=== PATIENT | male | born 1955 | race Caucasian/White ===

== ENCOUNTER 2024-06-05 11:39 | Inpatient (IN) ==
--- NOTE | 2024-06-05 11:49 | ED Physician Documentation ---
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 He said cough, cold, runny nose. He was seen by my partner on the , at which time he was found to have parainfluenza with generally unremarkable labs (low white count and mild anemia, very mild hyponatremia). His x-ray at that time was negative. He went to urgent care this morning with more generalized weakness, and was found to be hypoxic into the mid and low 80s and a fresh chest x-ray today demonstrates bilateral pneumonia. Meds/Allgy Home Medications Ambulatory Orders Medication Instructions Recorded Confirmed ondansetron 4 mg disintegrating 4 mg PO Q6HR PRN nausea and 06/02/24 tablet vomiting #20 tabs albuterol sulfate 90 mcg/actuation 2 puff inhalation Q6H PRN 06/05/24 06/05/24 aerosol inhaler (Ventolin HFA) amoxicillin 875 mg tablet 875 mg PO BID 10 days #20 tabs 06/05/24 06/05/24 azithromycin 250 mg tablet See Rx Instructions PO .COMPLEX #6 06/05/24 06/05/24 tabs benzonatate 200 mg capsule 200 mg PO BID PRN cough #14 caps 06/05/24 06/05/24 codeine 10 mg-guaifenesin 100 mg/5 5 ml PO Q6H PRN cough #120 mL 06/05/24 06/05/24 mL oral liquid melatonin 3 mg capsule 3 mg PO HS PRN 06/05/24 06/05/24 oxymetazoline 0.05 % nasal spray 2 spray intranasal Q12H PRN 06/05/24 06/05/24 (Afrin (oxymetazoline)) trazodone 100 mg tablet 100 mg PO QDAY 06/05/24 06/05/24 Allergies Allergies Allergy/AdvReac Type Severity Reaction Status Date / Time No Known Drug Allergies Allergy Verified 06/05/24 11:52 PFSH Active Problems All Active Problems Pneumonia (Acute) Respiratory failure (Acute) Acute respiratory failure with hypoxia (Acute) ARDS (adult respiratory distress syndrome) (Acute) Hypoxia (Acute) Pneumonia of both lower lobes (Acute) Cough (Acute) Nausea (Acute) Dehydration (Acute) Parainfluenza infection (Acute) Ingrown left big toenail (Acute) No pertinent past surgical history (Acute) Medical History Medical History Healthy adult on routine physical examination Family History Family History Other Healthy adult on routine physical examination Social History Social History Smoking Status: Never smoker Relationship: Do you feel safe in your home environment?: Yes Suffered physical, verbal, emotional, or financial abuse?: No POLST Patient has POLST: No Exam Exam Vital Signs: Vital Signs x48h Temp Pulse Resp BP Pulse Ox 06/05/24 11:49 36.9 C 69 24 118/66 88 L Constitutional He is tachypneic with labored breathing but speaking in full sentences. Chest Mildly labored breathing and crackles at both bases. Cardiovascular normal heart rate noted Very subtle apical systolic murmur Gastrointestinal abdomen soft to palpation and nontender to palpation Extremities No pedal edema or calf tenderness. Results Vitals Vitals: Vital Signs - 24 hr 06/05/24 11:49 Temperature 36.9 C Temperature Source Temporal Artery Scan Pulse Rate 69 Respiratory Rate 24 Blood Pressure 118/66 O2 Saturation 88 L O2 Source Room air Pain Intensity 0 Oxygen O2 Source Room air Labs Labs: Laboratory Tests 06/05/24 11:59 WBC 5.1 RBC 3.33 L Hgb 10.9 L Hct 30.8 L MCV 92.5 MCH 32.7 H MCHC 35.4 RDW 11.7 L Plt Count 131 MPV 9.9 Neut # (Auto) Not Reportable Lymph # (Auto) Not Reportable [place] # (Auto) Not Reportable Eos # (Auto) Not Reportable Baso # (Auto) Not Reportable Absolute Nucleated RBC Not Reportable Total Counted 100 Band Neuts % (Manual) 11 H Abnorm Lymph % (Manual) 0 Nucleated RBC % Not Reportable Neutrophils # (Manual) 4.5 Lymphocytes # (Manual) 0.2 L Monocytes # (Manual) 0.4 Eosinophils # (Manual) 0.0 Basophils # (Manual) 0.0 Differential Comment MANUAL DIFFERENTIAL Platelet Estimate NORMAL (130-450,000) Platelet Morphology NORMAL APPEARANCE RBC Morph Micro Appear NORMAL APPEARANCE VBG pH 7.419 H VBG pCO2 44.0 VBG pO2 27.1 VBG HCO3 28.7 H VBG Total CO2 30.1 H VBG O2 Saturation 38.0 L VBG Base Excess 4.0 H Sodium 123 L Potassium 3.8 Chloride 88 L Carbon Dioxide 28 Anion Gap 7.0 BUN 21 H Creatinine 1.0 Estimated GFR (MDRD) 75 L Glucose 94 Lactic Acid 1.2 Calcium 9.5 Total Bilirubin 0.9 AST 70 H ALT 48 Alkaline Phosphatase 88 Total Protein 6.6 Albumin 3.8 Globulin 2.8 Albumin/Globulin Ratio 1.4 PD Medical Decision Making ED course ED course: 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 Now requiring 2 L of oxygen, has bilateral pneumonia on x-ray, sodium is gone down significantly as well. His white count is on the low end, but he does have a bandemia. Blood cultures were ordered and I ordered Rocephin and azithromycin. Spoke with Dr. Champagne for admission at 12:40 PM. Discharge Plan Discharge Patient Disposition: 68 [facility] DC/Xfer Condition: Serious Clinical Impression: Respiratory failure Qualifiers: Chronicity: acute Respiratory failure complication: hypoxia Qualified Code(s): J96.01 - Acute respiratory failure with hypoxia Pneumonia Qualifiers: Pneumonia type: due to unspecified organism Laterality: bilateral Lung location: unspecified part of lung Qualified Code(s): J18.9 - Pneumonia, unspecified organism Prescriptions: No Action ondansetron 4 mg tablet,disintegrating 4 mg PO Q6HR PRN (Reason: nausea and vomiting) Qty: 20 0RF trazodone 100 mg tablet 100 mg PO QDAY albuterol sulfate [Ventolin HFA] 90 mcg/actuation HFA aerosol inhaler 2 puff inhalation Q6H PRN oxymetazoline [Afrin (oxymetazoline)] 0.05 % spray,non-aerosol 2 spray intranasal Q12H PRN melatonin 3 mg capsule 3 mg PO HS PRN Rx Instructions: two at bedtime for sleep azithromycin 250 mg tablet See Rx Instructions PO .COMPLEX Qty: 6 0RF Rx Instructions: For 250 mg dose pack: take 500 mg today (day 1), then 250 mg for 4 days (days 2-5) PO amoxicillin 875 mg tablet 875 mg PO BID 10 Days Qty: 20 0RF benzonatate 200 mg capsule 200 mg PO BID PRN (Reason: cough) Qty: 14 0RF codeine-guaifenesin 10-100 mg/5 mL liquid 5 ml PO Q6H PRN (Reason: cough) Qty: 120 0RF Print Language: [place] Islander Stand Alone Forms: PCP List
[2024-06-05 12:07] LABS: BASOPHILS % (AUTO) 1.4 %; EOSINOPHILS % (AUTO) 0.2 %; HCT - HEMATOCRIT 30.8 % (42.0-52.0); HGB - HEMOGLOBIN 10.9 g/dL (14.0-18.0); LYMPHOCYTES % (AUTO) 2.9 %; MEAN CORPUSCULAR HEMOGLOBIN 32.7 pg (27.0-31.0); MEAN CORPUSCULAR HGB CONC 35.4 g/dL (32.0-36.0); MEAN CORPUSCULAR VOLUME 92.5 fL (80.0-94.0); MEAN PLATELET VOLUME 9.9 fL (7.4-11.4); MONOCYTES % (AUTO) 2.2 %; NEUTROPHILS % (AUTO) 91.9 %; PLT - PLATELET COUNT 131 10^3/uL (130-450); RED BLOOD COUNT 3.33 10^6/uL (4.70-6.10); RED CELL DISTRIBUTION WIDTH 11.7 % (12.0-15.0); WHITE BLOOD COUNT 5.1 x10^3/uL (4.8-10.8)
[2024-06-05 12:10] LABS: VBG PH 7.419 (7.31-7.41)
[2024-06-05 12:11] LABS: VBG PO2 27.1 mmHg (25-47); VBG TOTAL CO2 30.1 mmol/L (24-29)
[2024-06-05 12:19] LABS: ABNORMAL LYMPHS % (MANUAL) 0 %
[2024-06-05 12:36] LABS: BAND NEUTROPHILS % (MANUAL) 11 %; DIFFERENTIAL COMMENT MANUAL DIFFERENTIAL; LYMPHOCYTES # (MANUAL) 0.2 10^3/uL (1.5-3.5); LYMPHOCYTES % (MANUAL) 3 %; MONOCYTES # (MANUAL) 0.4 10^3/uL (0.0-1.0); NEUTROPHILS # (MANUAL) 4.5 10^3/uL (1.5-6.6); PLATELET ESTIMATE, MANUAL NORMAL (130-450,000) (NORMAL); PLATELET MORPHOLOGY NORMAL APPEARANCE (NORMAL); RBC MORPHOLOGY (MULTIPLE) NORMAL APPEARANCE (NORMAL)
[2024-06-05 12:38] LABS: ALBUMIN 3.8 g/dL (3.2-5.5); ALBUMIN/GLOBULIN RATIO 1.4 (1.0-2.2); BILIRUBIN,TOTAL 0.9 mg/dL (0.2-1.0); CALCIUM 9.5 mg/dL (8.5-10.3); POTASSIUM 3.8 mmol/L (3.5-4.5); TOTAL PROTEIN 6.6 g/dL (6.4-8.9)
[2024-06-05] MEDS: cefTRIAXone 1 GM VIAL IVP STA (12:50)
[2024-06-05] MEDS: SODIUM CHLORIDE 0.9% 1,000 ML IV STA (12:52)
[2024-06-05] MEDS: AZITHROMYCIN INJ 500 MG in SODIUM CHLORIDE 0.9% 250 ML IV STA (12:52)
[2024-06-05] MEDS: IBUPROFEN 600 MG TABLET PO STA (12:52)
[2024-06-05] MEDS: ACETAMINOPHEN 500 MG TABLET PO STA (12:52)
[2024-06-05] MEDS: LORazepam 2 MG/ML VIAL IVP STA (13:13)
[2024-06-05] MEDS ORDERED: ONDANSETRON ODT 4 MG TABLET TL PRN (13:57)
[2024-06-05] MEDS ORDERED: ONDANSETRON 4 MG/2 ML VIAL IVP PRN (13:57)
[2024-06-05] MEDS ORDERED: oxyCODONE 5 MG TABLET PO PRN (13:57)
[2024-06-05] MEDS: SODIUM CHLORIDE 0.9% 1,000 ML IV SCH (14:47)
--- NOTE | 2024-06-05 15:23 | PHARMACY PROGRESS NOTE ---
Best Possible Medication History Admit Date and Time: 06/05/24 [id number] Home Medications Medication Instructions Recorded Confirmed Type ondansetron 4 mg disintegrating 4 mg PO Q6HR PRN nausea and 06/02/24 06/05/24 Rx tablet vomiting #20 tabs albuterol sulfate 90 mcg/actuation 2 puff inhalation Q6H PRN 06/05/24 06/05/24 History aerosol inhaler (Ventolin HFA) shortness of breath or wheezing amoxicillin 875 mg tablet 875 mg PO BID 10 days #20 tabs 06/05/24 06/05/24 Rx azithromycin 250 mg tablet See Rx Instructions PO .COMPLEX #6 06/05/24 06/05/24 Rx tabs benzonatate 200 mg capsule 200 mg PO BID PRN cough #14 caps 06/05/24 06/05/24 Rx celecoxib 200 mg capsule 200 mg PO DAILY 06/05/24 06/05/24 History codeine 10 mg-guaifenesin 100 mg/5 5 ml PO Q6H PRN cough #120 mL 06/05/24 06/05/24 Rx mL oral liquid finasteride 5 mg tablet 5 mg PO DAILY 06/05/24 06/05/24 History lamotrigine 200 mg tablet 200 mg PO QPM 06/05/24 06/05/24 History melatonin 3 mg capsule 6 mg PO HS PRN sleep 06/05/24 06/05/24 History omeprazole 20 mg capsule,delayed 20 mg PO AC 06/05/24 06/05/24 History release oxymetazoline 0.05 % nasal spray 2 spray intranasal Q12H PRN nasal 06/05/24 06/05/24 History (Afrin (oxymetazoline)) congestion tadalafil 5 mg tablet 5 mg PO DAILY 06/05/24 06/05/24 History trazodone 100 mg tablet 100 mg PO QPM 06/05/24 06/05/24 History Processed by: Pharmacy (Medication reconciliation completed by Drivers License Examiner) Medications reviewed in ED?: No Medication History completed: Yes Patient Interview: Completed Secondary Source(s): Insurance records [employer] Statement: As the person ultimately responsible for medication therapy, providers are able to order a medication from an existing home medication list in [facility] via the "Reconcile Routine" prior to Confirmation of that medication by marketing support manager. Such practice is discouraged except when the physician, in their clinical judgment, deems that a medical need exists for a medication without regard to previous use.
--- NOTE | 2024-06-05 15:38 | HISTORY & PHYSICAL EXAMINATION ---
Chief Complaint Chief Complaint Chief Complaint: cough, weakness and sob History of Present Illness Admitted From Admitted From:: home [facility] History obtained from: and Dr. Miller Exam Limitations: asleep and difficult to arouse History of Present Illness HPI Comment/Other: 69-year-old white male who has a past medical history of asthma and presents to the emergency room with a 6-day history of cough, waxing and waning fevers, shortness of breath. He divides his time between the [place] and [facility]. His states that he is a very healthy man. He uses his inhaler for asthma very rarely. Not even once a month. His asthma is usually associated with allergies. He has never been intubated or hospitalized because of severe illness. He is a non-smoker. And no one else was sick in their family. [place]. No exposure to rodents. He just came back to the [place] last week and within a day of coming back noticed that he had sore throat, developing cough, chest congestion. He then developed waxing and waning fevers, rigors. Appetite is poor and he's eaten very little. The cough has been nonproductive. No hemoptysis. His is sick as well. He had this history for 6 days and then went to the ER on June 02. He had a fever to 39.5. Heart rate to 104. O2 sat was 97% on room air. Respiratory rate 22 and his blood pressure was 105/82. Chest x-ray was negative. He was diagnosed with parainfluenza on a swab. He received antibiotics, Tylenol, and temperature dropped to 37 7. His heart rate dropped into the 70s and 60s. Blood pressure was still low at 97/56. White cell count was low at 3.8. Hemoglobin mildly low at 12.7. Platelets 131. Chemistry showed a mildly low sodium at 133. A creatinine of 1.1. And a glucose of 107. Liver enzymes are normal. Urinalysis was negative. Chest x-ray had no abnormalities. He was not felt to have any acute cardiopulmonary abnormalities. After treatment in the emergency room he went back home. He went to work today. He is an ER provider. At work,they noticed that he was not doing well and did a set of vitals. They then bundled him up into a private vehicle and brought him here to the emergency room. But before he allow them to do that, he gave himself a shot of Rocephin in the walk-in clinic. Today his vitals showed a temperature of 36.9. Heart rate of 69. Respirations 24, O2 sat was 88% on room air. And blood pressure was 118/66. His chest x-ray is read as soft bilateral infiltrates. Large gas bubble in the left upper quadrant of dilated loops of bowel.Final report is not in the EMR. This is per the ER interpretation. His sodium is come down to 123. Creatinine is 1.0. Glucose 94. White cell count is normal at 5.1 but he is 11% bands. He is noticeably more fatigued than he was on the . I discussed the case with the ER provider. I think he may have a secondary bacterial pneumonia on top of a viral infection.As such I do feel that he meets criteria under the 2 midnight rule to be admitted as an inpatient due to hypoxemia, abnormal chest x-ray, elevated white cell count, Meds/Allgy Home Medications Ambulatory Orders Medication Instructions Recorded Confirmed ondansetron 4 mg disintegrating 4 mg PO Q6HR PRN nausea and 06/02/24 06/05/24 tablet vomiting #20 tabs albuterol sulfate 90 mcg/actuation 2 puff inhalation Q6H PRN 06/05/24 06/05/24 aerosol inhaler (Ventolin HFA) shortness of breath or wheezing amoxicillin 875 mg tablet 875 mg PO BID 10 days #20 tabs 06/05/24 06/05/24 azithromycin 250 mg tablet See Rx Instructions PO .COMPLEX #6 06/05/24 06/05/24 tabs benzonatate 200 mg capsule 200 mg PO BID PRN cough #14 caps 06/05/24 06/05/24 celecoxib 200 mg capsule 200 mg PO DAILY 06/05/24 06/05/24 codeine 10 mg-guaifenesin 100 mg/5 5 ml PO Q6H PRN cough #120 mL 06/05/24 06/05/24 mL oral liquid finasteride 5 mg tablet 5 mg PO DAILY 06/05/24 06/05/24 lamotrigine 200 mg tablet 200 mg PO QPM 06/05/24 06/05/24 melatonin 3 mg capsule 6 mg PO HS PRN sleep 06/05/24 06/05/24 omeprazole 20 mg capsule,delayed 20 mg PO AC 06/05/24 06/05/24 release oxymetazoline 0.05 % nasal spray 2 spray intranasal Q12H PRN nasal 06/05/24 06/05/24 (Afrin (oxymetazoline)) congestion tadalafil 5 mg tablet 5 mg PO DAILY 06/05/24 06/05/24 trazodone 100 mg tablet 100 mg PO QPM 06/05/24 06/05/24 Allergies Allergies Allergy/AdvReac Type Severity Reaction Status Date / Time No Known Drug Allergies Allergy Verified 06/05/24 11:52 PFSH Active Problems All Active Problems (Updated 06/05/24 @ 16:16 by Mecca Champagne MD) Pneumonia (Acute) Acute respiratory failure with hypoxia (Acute) Pneumonia of both lower lobes (Acute) Cough (Acute) Nausea (Acute) Dehydration (Acute) Parainfluenza infection (Acute) Ingrown left big toenail (Acute) Medical History Medical History (Updated 06/05/24 @ 16:16 by Mecca Champagne MD) GERD (gastroesophageal reflux disease) Skin cancer BPH w urinary obs/LUTS seeing Urology in [facility] and in [place] Sciatica of right side Osteoarthritis left knee, right shoulder Asthma Healthy adult on routine physical examination Surgical History Surgical History (Updated 06/05/24 @ 16:16 by Mecca Champagne MD) H/O colonoscopy with polypectomy S/P arthroscopic surgery of left knee Family History Family History (Updated 06/05/24 @ 15:51 by Mecca Champagne MD) Father Esophageal cancer Mother CVA (cerebral vascular accident) Brother Well adult exam Son Well adult exam Other Healthy adult on routine physical examination Social History Social History (Updated 06/05/24 @ 15:53 by Mecca Champagne MD) Smoking Status: Never smoker Second hand tobacco smoke exposure: No Do you dip or chew tobacco?: No Do you vape?: No Living arrangement: At home Marital Status: Living Condition: With spouse/s.o. Support Person: Yes Relationship: Spouse Living Situation Details: Lives in [place] with . Only here a year. Also lives is [facility] Level: Independent Physical - Functional Details: works parts back counter man, drives, no DME Do you feel safe in your home environment?: Yes Suffered physical, verbal, emotional, or financial abuse?: No Frequency: Occasional ETOH Use Details: no history of alcohol abuse Substance Use: denies use Occupation: Emergency Room/Urgent care MD. [employer] Retired: No Service: No POLST Patient has POLST: No POLST Status: Full Code ( states no paper work) Review of Systems Constitutional Reports: Fatigue, Fever, Chills, Malaise, Weakness and Poor appetite (not really eating) Eyes Reports: Corrective lenses (poor vision but no cataracts or glaucoma) Ears, nose, mouth, and throat Reports: Other (allergies and rhinitis in bad season) Cardiovascular Denies: Irregular heart rate, chest pain, palpitations, edema, swelling of feet/ankles, Syncope, lightheadedness, shortness of breath with exertion or shortness of breath when lying down Respiratory Reports: Cough, Wheezing and Snoring (every night, loud); Denies: Shortness of breath, Sputum production, Change in phlegm color, Apnea, Pleuritic pain, Pain on inspiration, Coughing up blood or Orthopnea Gastrointestinal Reports: Nausea, Poor appetite and Heartburn (For which he uses as needed omeprazole); Denies: Abdominal pain, Abdominal distention, Vomiting or Change in bowel habits Genitourinary Reports: Incontinence, Urinary frequency, Urinary urgency and Nocturia; Denies: Blood in urine Musculoskeletal Reports: Back pain (sciatica on right) and Joint pain (left knee) Integumentary/Breast Reports: Other (basal cell or squamous cell of forehead and scalp) Neurological Denies: Headache, General weakness, Focal weakness, Pre-existing deficit, Confusion, Memory problems, Behavioral changes, Difficulty communicating thoughts, Seizure-like activity or Involuntary movements Psychiatric Reports: Depression (takes meds since the 1980s, also uses trazadone for insomnia); Denies: Panic attacks, Hopelessness, Suicidal ideation or Homicidal ideation Endocrine Reports: Fatigue; Denies: Excessive urination, Excessive thirst, Polyphagia, Cold intolerance or Heat intolerance Hematologic/Lymphatic Denies: Anemia, Easy bruising, Petechiae or Easy bleeding Allergic/Immunologic Reports: Wheezing and Seasonal allergies Prior Level of Functionality: Independent with activities of daily living. Drives a car. Travels. Pays bills. Still works part-time. Exam Exam Vital Signs: Vital Signs x48h Temp Pulse Resp BP BP Pulse Ox O2 Flow Rate 06/05/24 14:31 36.7 C 18 97/63 97 2 06/05/24 14:25 76 20 106/76 92 2 06/05/24 13:30 75 20 117/80 91 L 2 06/05/24 12:22 36.9 C 76 20 115/67 92 2 06/05/24 12:07 2 06/05/24 11:49 36.9 C 69 24 118/66 88 L Deeply asleep, loudly snoring, unresponsive to my voice and I completed an exam with him sleeping.I did not shake him awake. at the bedside. She asked me to let him sleep. Constitutional normal general appearance Thin white male, looks stated age. Even in his sleep, wearing glasses. removed them. No respiratory distress HENMT normocephalic, head/scalp atraumatic and oral mucous membranes normal (Mouth open breathing with his snoring) Eyes PERRL Neck/C-Spine visual inspection normal and trachea midline Chest inspection of chest normal and palpation of chest normal Respiratory breath sounds equal bilaterally, normal respiratory effort, clear to auscultation bilaterally and no wheezes ( reports he was wheezing earlier today. But she does not describe use ) Cardiovascular normal heart rate noted, regular rhythm noted and no murmur Gastrointestinal abdomen normal to inspection, abdomen soft to palpation, nontender to palpation, nondistended and normoactive bowel sounds Extremities normal to inspection, normal to palpation, no tenderness, no joint enlargement and no deformity Neurology Asleep. Amazing that he slept through my exam. I did not wake him up to do complete neurological exam right now. Skin skin color normal, no rash, skin turgor normal and no mottling Arms and legs are warm, no edema. Conclusion/Plan Problem List (1) Acute respiratory failure with hypoxia: Plan: This gentleman is described as a very healthy person. He has a history of mild asthma with rare, infrequent use of an inhaler. Usually associated with seasonal allergies. I do not feel he is immunocompromised. Nevertheless he appears to have developed a secondary bacterial pneumonia from viral parainfluenza. His respiratory failure is from the pneumonia. I do not suspect pneumonia or some type of interstitial lung disease. Although he has a history of asthma, I am not finding to be in severe asthmatic distress. There is no wheezing and no prolonged inhalation to exhalation ratio on exam. Plan: [address] in inpatient status. Admission criteria of new onset hypoxia, abnormal chest x-ray with pneumonia, elevated white cell count. He is also mildly hypotensive and below his usual blood pressure that his states is in the 120s over 70s. He is 97/63 here on MedSurg. And as low as 85/58. The states that he is a full code. If he develops severe respiratory distress and worsening hypoxemia she would like aggressive treatment to progress. If unable to put him on BiPAP or intubation she is fine with that. (2) Pneumonia of both lower lobes: Plan: Most likely has a secondary bacterial pneumonia due to the parainfluenza infection. I ordered a procalcitonin level and it is 21.72. Greater than 2.0 is associated with a high risk of severe sepsis and/or septic shock. He has already received empiric Rocephin and azithromycin. I am planning on 5 days of Rocephin and 3 days of azithromycin. I will check mycoplasma titers. I will send sputum for Gram stain and culture. I will add 3 doses of Solu-Medrol IV. Qualifiers: Pneumonia type: due to unspecified organism Qualified Code(s): J18.9 - Pneumonia, unspecified organism (3) BPH w urinary obs/LUTS: Plan: The last few days have been difficult for him according to his . While he has had symptoms of nocturia, decreased stream, and rare urinary incontinence, the last few days he is much worse. He has had to wear a diaper. He takes finasteride. Is followed by urology in [place]. He does take rare tadalafil and I will note that to make sure that he does not get any nitrates. He is not on Flomax. I will add that to his regimen while he is in the hospital. (4) Parainfluenza infection: Plan: Treatment is supportive. Unfortunately he has developed a secondary infection from the parainfluenza. Plan Support for cough, hypoxemia, chest congestion in the form of Robitussin AC, albuterol nebulizer, and nasal cannula oxygen. Lab Results 06/05/24 11:59 06/05/24 11:59 Core Measures Anticipated LOS I expect patient to be DC'd or transferred within 96 hours.: Yes DVT/VTE - Prophylaxis VTE/DVT Device ordered at admit?: No VTE/DVT Prophylaxis med ordered at admit?: Yes
[2024-06-05] MEDS ORDERED: MELATONIN 3 MG TABLET PO PRN (16:25)
[2024-06-05] MEDS: methylPREDNISolone SUCCINATE 40 MG/ML VIAL IVP SCH (17:51)
[2024-06-05] MEDS: guaiFENesin/CODEINE 5 ML UDC PO PRN (17:59)
[2024-06-05] MEDS: traZODone 50 MG TABLET PO SCH (21:32)
[2024-06-05] MEDS: lamoTRIgine 100 MG TABLET PO SCH (21:32)
[2024-06-06 05:55] LABS: HCT - HEMATOCRIT 27.8 % (42.0-52.0); HGB - HEMOGLOBIN 9.9 g/dL (14.0-18.0); MEAN CORPUSCULAR HGB CONC 35.6 g/dL (32.0-36.0); MEAN CORPUSCULAR VOLUME 92.7 fL (80.0-94.0); MEAN PLATELET VOLUME 10.3 fL (7.4-11.4); MONOCYTES % (AUTO) 3.3 %; NEUTROPHILS % (AUTO) 94.2 %; PLT - PLATELET COUNT 146 10^3/uL (130-450); RED CELL DISTRIBUTION WIDTH 11.9 % (12.0-15.0); WHITE BLOOD COUNT 9.1 x10^3/uL (4.8-10.8)
[2024-06-06 06:10] LABS: CALCIUM 9.1 mg/dL (8.5-10.3); CREATININE 0.9 mg/dL (0.6-1.3); POTASSIUM 4.3 mmol/L (3.5-4.5)
[2024-06-06 06:20] LABS: ABNORMAL LYMPHS % (MANUAL) 0 %
[2024-06-06 07:09] LABS: BAND NEUTROPHILS % (MANUAL) 24 %; DIFFERENTIAL COMMENT MANUAL DIFFERENTIAL; LYMPHOCYTES # (MANUAL) 0.2 10^3/uL (1.5-3.5); LYMPHOCYTES % (MANUAL) 2 %; METAMYELOCYTES % (MANUAL) 1 %; MONOCYTES # (MANUAL) 0.4 10^3/uL (0.0-1.0); NEUTROPHILS # (MANUAL) 8.5 10^3/uL (1.5-6.6); PLATELET ESTIMATE, MANUAL NORMAL (130-450,000) (NORMAL); PLATELET MORPHOLOGY NORMAL APPEARANCE (NORMAL); RBC MORPHOLOGY (MULTIPLE) NORMAL APPEARANCE (NORMAL); WBC MORPHOLOGY (MULTIPLE) NORMAL APPEARANCE (NORMAL)
[2024-06-06] MEDS: ENOXAPARIN 40 MG/0.4 ML SYRINGE SUBQ SCH (08:18)
[2024-06-06] MEDS: TAMSULOSIN 0.4 MG CAPSULE PO SCH (08:19)
[2024-06-06] MEDS: FINASTERIDE 5 MG TABLET PO SCH (08:19)
[2024-06-06] MEDS: cefTRIAXone 1 GM in SODIUM CHLORIDE 0.9% MINIBAG 100 ML IV SCH (08:19)
[2024-06-06] MEDS: CELECOXIB 100 MG CAPSULE PO SCH (08:23)
[2024-06-06] MEDS: AZITHROMYCIN INJ 500 MG in SODIUM CHLORIDE 0.9% 250 ML IV SCH (09:11)
[2024-06-06] MEDS ORDERED: methocarbamoL 500 MG TABLET PO PRN (09:43)
[2024-06-06] MEDS: GABAPENTIN 100 MG CAPSULE PO SCH (10:17)
[2024-06-06] MEDS: cefTRIAXone 1 GM VIAL IVP ONE (13:30)
--- NOTE | 2024-06-06 18:04 | PROVIDER PROGRESS NOTE ---
Subjective Prog Note Date Prog Note Date: 06/06/24 Prog Note Time: 18:03 Subjective Pt reports feeling: Improved Subjective: He had agitation and confusion at 3 in the morning. He recognized it and it really bothered him. This morning he is very tired but feeling better. By this afternoon he recognizes that he has weakness. Walking to the bathroom he needed to use a walker. But by this afternoon he feels more steady on his feet. No cough. No chest pain. Reading a book by this afternoon. Blood cultures from June 02 were negative. Blood cultures from June 05 show strep pneumonia. Pharmacy and I discussed his medication reconciliation. He is on Ozempic or at least a mail-order form of it that he pays for. He has lost about 30 pounds with it. Current Medications Current Medications Current Medications: Current Medications Generic Name Dose Route Start Last Admin Trade Name Freq PRN Reason Stop Dose Admin Acetaminophen 650 mg 06/05/24 13:57 Acetaminophen 325 Mg Tablet PO Q4HR PRN Pain 1 to 4, or Fever Ceftriaxone Sodium 2 gm 06/07/24 09:00 Ceftriaxone 2 Gm Vial IVP DAILY FLOWER Celecoxib 200 mg 06/06/24 09:00 06/06/24 08:23 Celecoxib 100 Mg Capsule PO 200 mg DAILY FLOWER Administration Enoxaparin Sodium 40 mg 06/06/24 09:00 06/06/24 08:18 Enoxaparin 40 Mg/0.4 Ml Syringe SUBQ 40 mg DAILY FLOWER Administration Finasteride 5 mg 06/06/24 09:00 06/06/24 08:19 Finasteride 5 Mg Tablet PO 5 mg DAILY FLOWER Administration Gabapentin 100 mg 06/06/24 10:00 06/06/24 10:17 Gabapentin 100 Mg Capsule PO 100 mg DAILY FLOWER Administration Guaifenesin/Codeine Phosphate 5 ml 06/05/24 16:17 06/06/24 00:25 Guaifenesin/Codeine 5 Ml Udc PO 5 ml Q6HR PRN Administration Cough Azithromycin 500 mg/ Sodium 250 mls @ 250 mls/hr 06/06/24 09:00 06/06/24 10:15 Chloride IV 06/08/24 09:59 Infused DAILY FLOWER Infusion Lamotrigine 200 mg 06/05/24 21:00 06/05/24 21:32 Lamotrigine 100 Mg Tablet PO 200 mg QPM FLOWER Administration Melatonin 6 mg 06/05/24 16:25 Melatonin 3 Mg Tablet PO HS PRN sleep Methocarbamol 500 mg 06/06/24 09:43 Methocarbamol 500 Mg Tablet PO Q6HR PRN Spasms Ondansetron HCl 4 mg 06/05/24 13:57 Ondansetron Odt 4 Mg Tablet TL Q6HR PRN Nausea / Vomiting Ondansetron HCl 4 mg 06/05/24 13:57 Ondansetron 4 Mg/2 Ml Vial IVP Q6HR PRN Nausea / Vomiting Oxycodone HCl 5 mg 06/05/24 13:57 Oxycodone 5 Mg Tablet PO Q4HR PRN Pain 5 to 7 Sterile Water 20 ml 06/07/24 09:00 Water For Injection,Sterile 10 Ml Vial MC DAILY [facility] Tamsulosin HCl 0.4 mg 06/06/24 09:00 06/06/24 08:19 Tamsulosin 0.4 Mg Capsule PO 0.4 mg DAILY FLOWER Administration Trazodone HCl 100 mg 06/05/24 21:00 06/05/24 21:32 Trazodone 50 Mg Tablet PO 100 mg QPM FLOWER Administration Objective Vital Signs/Intake & Output Reviewed Vital Signs: Yes Vital Signs: Vital Signs x48h Temp Pulse Resp BP Pulse Ox 06/06/24 16:10 37.0 C 61 26 H 112/68 92 Intake & Output: Intake & Output 06/03/24 06/04/24 06/05/24 06/06/24 23:59 23:59 23:59 23:59 Intake Total 1870 / 1870 2630 / 2630 Output Total 475 / 475 2600 / 2600 Balance 1395 / 1395 Weight (kg) 65 kg Objective General Appearance: positive No acute distress, Alert and Other (Thin male. Wearing glasses. Looks very fatigued.) Eyes Bilateral: positive PERRL, EOMI and Other (Wearing glasses) ENT: positive ENT inspection nml Neck: positive Nml inspection, Thyroid nml and No JVD Respiratory: positive Chest non-tender, No respiratory distress and Other (Diminished breath sounds at the left lung base with slight egophony.) Cardiovascular: positive Regular rate & rhythm and No murmur Abdomen: positive Non-tender, No organomegaly and Nml bowel sounds Lab Results 06/06/24 05:23 06/06/24 05:23 Other Labs: Lab Results x24hrs 06/06/24 Range/Units 05:23 WBC 9.1 (4.8-10.8) x10^3/uL RBC 3.00 L (4.70-6.10) 10^6/uL Hgb 9.9 L (14.0-18.0) g/dL Hct 27.8 L (42.0-52.0) % MCV 92.7 (80.0-94.0) fL MCH 33.0 H (27.0-31.0) pg MCHC 35.6 (32.0-36.0) g/dL RDW 11.9 L (12.0-15.0) % Plt Count 146 (130-450) 10^3/uL MPV 10.3 (7.4-11.4) fL Neut # (Auto) Not Reportable Lymph # (Auto) Not Reportable [place] # (Auto) Not Reportable Eos # (Auto) Not Reportable Baso # (Auto) Not Reportable Absolute Nucleated RBC Not Reportable Total Counted 100 Band Neuts % (Manual) 24 H (0 - 10) % Abnorm Lymph % (Manual) 0 % Metamyelocytes % 1 H ( - 0) % Nucleated RBC % Not Reportable Neutrophils # (Manual) 8.5 H (1.5-6.6) 10^3/uL Lymphocytes # (Manual) 0.2 L (1.5-3.5) 10^3/uL Monocytes # (Manual) 0.4 (0.0-1.0) 10^3/uL Eosinophils # (Manual) 0.0 (0-0.7) 10^3/uL Basophils # (Manual) 0.0 (0-0.1) 10^3/uL Differential Comment MANUAL DIFFERENTIAL WBC Morphology NORMAL APPEARANCE (NORMAL) Platelet Estimate NORMAL (130-450,000) (NORMAL) Platelet Morphology NORMAL APPEARANCE (NORMAL) RBC Morph Micro Appear NORMAL APPEARANCE (NORMAL) Sodium 130 L (135-145) mmol/L Potassium 4.3 (3.5-4.5) mmol/L Chloride 100 L (101-111) mmol/L Carbon Dioxide 25 (21-32) mmol/L Anion Gap 5.0 L (6-13) BUN 19 (6-20) mg/dL Creatinine 0.9 (0.6-1.3) mg/dL Estimated GFR (MDRD) 84 L (>89) Glucose 132 H (74-104) mg/dL Calcium 9.1 (8.5-10.3) mg/dL Procalcitonin Immunoas 14.96 H* (<0.5) ng/mL ABX Reporting Has patient been on IV antibiotics over the past 48 hours?: Yes Assessment/Plan Problem List (1) Pneumonia of both lower lobes: Impression: Strep pneumonia bacteremia identified on Blood cultures. I am waiting for sensitivities. Today is day 2 of azithromycin and day 2 of Rocephin. He will complete azithromycin tomorrow and I plan for 7 days of Rocephin.He ate 50% of his breakfast, and 100% of his lunch. Very weak and unsteady on his feet and required a walker (he usually does not use DME) this morning. This afternoon he is still using a walker but he feels stronger. He states that he feels noticeably more steady by this afternoon. I am hoping that when he is discharged, he will just be able to go home and not need skilled rehab. He tells me that his primary care provider is Dr. Scarlett Summers in [place]. He does have one in [place] but prefers we do continuity of care w Dr. Summers. I will contact her office and let he know he was admitted. Qualifiers: Pneumonia type: due to Pneumococcus Qualified Code(s): J13 - Pneumonia due to Streptococcus pneumoniae (2) Acute respiratory failure with hypoxia: Impression: Resolved. He has episodes of weakness and fatigue. Blood pressure was 85/58 at 4:00 yesterday afternoon. By this morning is 115/67 and this afternoon 112/68. He is afebrile. Temp is 37. He has been on room air since yesterday evening and is 92% on room air. His respiratory failure was due to bilateral pneumonia. See problem #1. Failure has now resolved and off oxygen. (3) BPH w urinary obs/LUTS: Impression: Urinary incontinence had been increasing so frequently when he became ill this last week. He was wearing a diaper. Right now he has controlled. Able to make it to the bathroom in time. I have resumed his Flomax and Proscar. (4) Parainfluenza infection: Impression: His PCR was positive for that with his first ER visit. But now that the blood cultures will come back I think that his strep pneumonia has been the problem all along. He is not immunocompromise. He has a spleen. He is not an alcoholic. Interesting that this is the bacteria that he is growing. (5) Anemia: Impression: This is a gentleman who takes a weight loss medication so some of his anemia may be due to nutritional deficiency. He does not have a history of alcoholism. He does not have a history of gastric ulcer disease. He has no history of GI bleeds. His ER visit hemoglobin was 12.7. When he was reseen in the ER he was 10.9, and today he is 9.9. He will need follow-up in the outpatient setting for this. Qualifiers: Anemia type: unspecified type Qualified Code(s): D64.9 - Anemia, unspecified
[2024-06-07] MEDS: ACETAMINOPHEN 325 MG TABLET PO PRN (03:07)
[2024-06-07] MEDS: BENZONATATE 100 MG CAPSULE PO PRN (04:02)
[2024-06-07] MEDS: OXYMETAZOLINE NASAL SPRAY NAS PRN (04:02)
[2024-06-07 05:48] LABS: BASOPHILS # (AUTO) 0.1 10^3/uL (0.0-0.1); BASOPHILS % (AUTO) 0.3 %; HCT - HEMATOCRIT 26.3 % (42.0-52.0); HGB - HEMOGLOBIN 9.5 g/dL (14.0-18.0); LYMPHOCYTES # (AUTO) 0.5 10^3/uL (1.5-3.5); LYMPHOCYTES % (AUTO) 2.8 %; MEAN CORPUSCULAR HEMOGLOBIN 33.1 pg (27.0-31.0); MEAN CORPUSCULAR HGB CONC 36.1 g/dL (32.0-36.0); MEAN CORPUSCULAR VOLUME 91.6 fL (80.0-94.0); MEAN PLATELET VOLUME 9.7 fL (7.4-11.4); MONOCYTES # (AUTO) 0.8 10^3/uL (0.0-1.0); MONOCYTES % (AUTO) 4.9 %; NEUTROPHILS # (AUTO) 14.5 10^3/uL (1.5-6.6); NEUTROPHILS % (AUTO) 90.6 %; PLT - PLATELET COUNT 171 10^3/uL (130-450); RED BLOOD COUNT 2.87 10^6/uL (4.70-6.10); RED CELL DISTRIBUTION WIDTH 12.7 % (12.0-15.0)
[2024-06-07 06:14] LABS: CALCIUM 9.3 mg/dL (8.5-10.3); POTASSIUM 4.1 mmol/L (3.5-4.5)
[2024-06-07] MEDS: cefTRIAXone 2 GM VIAL IVP SCH (08:17)
[2024-06-07 08:29] VITALS: BP 113/64; TEMP 99; O2SAT 92
--- NOTE | 2024-06-07 12:08 | Discharge Summary ---
"Discharge Summary Admit Date: 06/05/24 Discharge Date: 06/07/24 Discharging Provider: Mecca Champagne MD Primary Care Provider: Scarlett Summers MD ([place]) Code Status: Attempt Resuscitation DIAGNOSES Discharge Diagnoses with Status of Each Condition: 1. pneumonia with strep pneumonia, both lower lobes 2. Acute respiratory failure with hypoxia present on admission and has resolved 3. BPH with urinary obstruction/LUTS/urinary incontinence 4. Parainfluenza infection 5. Anemia HPI History of Present Illness: 69-year-old white male who has a past medical history of asthma and presents to the emergency room with a 6-day history of cough, waxing and waning fevers, shortness of breath. [facility] [place] [facility] [place] [facility]. His states that he is a very healthy man. He uses his inhaler for asthma very rarely. Not even once a month. His asthma is usually associated with allergies. He has never been intubated or hospitalized because of severe illness. He is a non-smoker. And no one else was sick in their family. [place]. No exposure to rodents. He just came back to [place] last week and within a day of coming back noticed that he had sore throat, developing cough, chest congestion. He then developed waxing and waning fevers, rigors. Appetite is poor and he's eaten very little. The cough has been nonproductive. No hemoptysis. His is sick as well. He had this history for 6 days and then went to the ER on June 02. He had a fever to 39.5. Heart rate to 104. O2 sat was 97% on room air. Respiratory rate 22 and his blood pressure was 105/82. Chest x-ray was negative. He was diagnosed with parainfluenza on a swab. He received antibiotics, Tylenol, and temperature dropped to 37 7. His heart rate dropped into the 70s and 60s. Blood pressure was still low at 97/56. White cell count was low at 3.8. Hemoglobin mildly low at 12.7. Platelets 131. Chemistry showed a mildly low sodium at 133. A creatinine of 1.1. And a glucose of 107. Liver enzymes are normal. Urinalysis was negative. Chest x-ray had no abnormalities. He was not felt to have any acute cardiopulmonary abnormalities. After treatment in the emergency room he went back home. He went to work today. He is an ER provider. At work,they noticed that he was not doing well and did a set of vitals. They then bundled him up into a private vehicle and brought him here to the emergency room. But before he allow them to do that, he gave himself a shot of Rocephin in the walk-in clinic. Today his vitals showed a temperature of 36.9. Heart rate of 69. Respirations 24, O2 sat was 88% on room air. And blood pressure was 118/66. His chest x-ray is read as soft bilateral infiltrates. Large gas bubble in the left upper quadrant of dilated loops of bowel.Final report is not in the EMR. This is per the ER interpretation. His sodium is come down to 123. Creatinine is 1.0. Glucose 94. White cell count is normal at 5.1 but he is 11% bands. He is noticeably more fatigued than he was on the . I discussed the case with the ER provider. I think he may have a secondary bacterial pneumonia on top of a viral infection.As such I do feel that he meets criteria under the 2 midnight rule to be admitted as an inpatient due to hypoxemia, abnormal chest x-ray, elevated white cell count. Reviewing his medications there are some medications that he is taking that are not on his pharmacy/insurance prescription list. He is taking a private sourced Ozempic and has lost 30 pounds. CONSULTS | PROCEDURES Procedures: Chest x-ray with multifocal bilateral pneumonia involving the posterior left lower lobe and medial right middle lobe PTH 50 Blood cultures from June 05 all growing Streptococcus pneumonia HOSPITAL COURSE Hospital Course: The patient was placed on MedSurg and received IV antibiotics in the form of Rocephin and azithromycin for community-acquired pneumonia. He completed 3 days of azithromycin and 3 days of Rocephin. Blood cultures with his second encounter in the emergency room grew out strep pneumonia. After 24 hours, he no longer required oxygen. His white cell count was normal. However, on the day of discharge his white cell count spiked to 16,000. The patient is a physician. We both discussed that sometimes severe infection can suppress bone marrow response leaving the patient with relative neutropenia. The fact that his white cell count went back up again was actually a good sign. In the ER, when he was first seen on June 02, his white cell count was 3.8. He is ambulating in the hallways. Oxygen is normal. Vitals are normal. When he was initially admitted and walking in his room he was ataxic, needing a walker, and needed a standby assist to get to the bathroom. By today, he is still using a walker but walking in a straight line, and not nearly as fatigued. He wandered the hospital at night and was cautioned to stay near his room so we didn't lose him. There was some delirium on admission and it continued into the morning of Day #2, but by today, alert, oriented, no hallucinations. He continues to have urgency and frequency. He is being seen by urology for BPH. During this illness he had avel urinary incontinence. He is discharged in stable condition. Blood pressure 113/64. Pulse 56. Respirations 18. Temperature 37.2. O2 sat 92% on room air. He is a thin white male who looks slightly older than stated age. He is 5 foot 8 inches tall, 65 kg. Shotty neck adenopathy. Lungs have excellent air movement. Good breath sounds. Slightly diminished in the left lower base but much improved from no breath sounds on admission. He also had egophony in the left lower lung when he was first admitted and the egophony is almost completely resolved. There is no tachypnea or use of accessory muscles. Abdomen is soft. Skin is warm dry. Looking at his ankles there is no edema. Greater than 30 minutes was spent coordinating discharge This document was made in part using voice recognition software. While efforts are made to proofread this document, sound alike and grammatical errors may occur. ALLERGIES Allergies Allergy/AdvReac Type Severity Reaction Status Date / Time No Known Drug Allergies Allergy Verified 06/05/24 11:52 MEDICATIONS Ambulatory Orders Medication Instructions Recorded Confirmed ondansetron 4 mg disintegrating 4 mg PO Q6HR PRN nausea and 06/02/24 06/05/24 tablet vomiting #20 tabs albuterol sulfate 90 mcg/actuation 2 puff inhalation Q6H PRN 06/05/24 06/05/24 aerosol inhaler (Ventolin HFA) shortness of breath or wheezing benzonatate 200 mg capsule 200 mg PO BID PRN cough #14 caps 06/05/24 06/05/24 celecoxib 200 mg capsule 200 mg PO DAILY 06/05/24 06/05/24 codeine 10 mg-guaifenesin 100 mg/5 5 ml PO Q6H PRN cough #120 mL 06/05/24 06/05/24 mL oral liquid finasteride 5 mg tablet 5 mg PO DAILY 06/05/24 06/05/24 lamotrigine 200 mg tablet 200 mg PO QPM 06/05/24 06/05/24 melatonin 3 mg capsule 6 mg PO HS PRN sleep 06/05/24 06/05/24 omeprazole 20 mg capsule,delayed 20 mg PO AC 06/05/24 06/05/24 release oxymetazoline 0.05 % nasal spray 2 spray intranasal Q12H PRN nasal 06/05/24 06/05/24 (Afrin (oxymetazoline)) congestion tadalafil 5 mg tablet 5 mg PO DAILY 06/05/24 06/05/24 trazodone 100 mg tablet 100 mg PO QPM 06/05/24 06/05/24 amoxicillin 500 mg-potassium 1 tab PO BID #10 tabs 06/07/24 clavulanate 125 mg tablet (Augmentin) gabapentin 300 mg capsule mg 06/07/24 PHYSICAL EXAM AT DISCHARGE Vital Signs: Vital Signs x48h Temp Pulse Resp BP Pulse Ox 06/07/24 08:28 37.2 C 56 L 18 113/64 92 LABS 06/07/24 05:33 06/07/24 05:33 Discharge Plan Discharge Patient Disposition: Home, Self Care Condition: Fair Medically Cleared Date:: 06/07/24 Prescriptions: New amoxicillin-pot clavulanate [Augmentin] 500-125 mg tablet 1 tab PO BID Qty: 10 0RF Continued ondansetron 4 mg tablet,disintegrating 4 mg PO Q6HR PRN (Reason: nausea and vomiting) Qty: 20 0RF celecoxib 200 mg capsule 200 mg PO DAILY Patient Comments: TAKE 1 CAPSULE BY MOUTH EVERY DAY lamotrigine 200 mg tablet 200 mg PO QPM Patient Comments: 1 TABLET EVERY DAY AT BEDTIME omeprazole 20 mg capsule,delayed release(DR/EC) 20 mg PO AC Patient Comments: TAKE 1 CAPSULE (20 MG TOTAL) BY MOUTH DAILY ON EMPTY STOMACH 30 TO 60 MINS BEFORE MEALS finasteride 5 mg tablet 5 mg PO DAILY Patient Comments: TAKE 1 TABLET (5 MG TOTAL) BY MOUTH DAILY. tadalafil 5 mg tablet 5 mg PO DAILY Patient Comments: TAKE 1 TABLET BY MOUTH EVERY DAY gabapentin 300 mg capsule Patient Comments: TAKE 1 CAPSULE BY MOUTH EVERY MORNING, AT NOON, AND 2 CAPSULES AT BEDTIME trazodone 100 mg tablet 100 mg PO QPM albuterol sulfate [Ventolin HFA] 90 mcg/actuation HFA aerosol inhaler 2 puff inhalation Q6H PRN (Reason: shortness of breath or wheezing) oxymetazoline [Afrin (oxymetazoline)] 0.05 % spray,non-aerosol 2 spray intranasal Q12H PRN (Reason: nasal congestion) melatonin 3 mg capsule 6 mg PO HS PRN (Reason: sleep) Rx Instructions: two at bedtime for sleep benzonatate 200 mg capsule 200 mg PO BID PRN (Reason: cough) Qty: 14 0RF codeine-guaifenesin 10-100 mg/5 mL liquid 5 ml PO Q6H PRN (Reason: cough) Qty: 120 0RF Discontinued azithromycin 250 mg tablet See Rx Instructions PO .COMPLEX Qty: 6 0RF Rx Instructions: For 250 mg dose pack: take 500 mg today (day 1), then 250 mg for 4 days (days 2-5) PO amoxicillin 875 mg tablet 875 mg PO BID 10 Days Qty: 20 0RF Activity Restrictions: Activity as Tolerated Diet: Regular Health Concerns: You have a history of asthma that is mild and presented to the emergency room with close to a week of history of cough, waxing and waning fevers, shortness of breath. He spends her time [facility] [place] [facility] and had recently [place]. Your asthma is associated with allergies and you rarely need an inhaler. Within a day of coming back you had sore throat, cough, chest congestion, fevers, rigors. Your appetite was poor. You went to the emergency room after a few days of this. On the emergency room June 02 he had a fever to 39.9, heart rate of 104. Normal sats. Normal chest x-ray. You were positive for parainfluenza viral infection on the swab. After evaluation in the emergency room you felt well enough to go home and you were sent home with amoxicillin and azithromycin. 3 days later you tried to go to work. You look so terrible that your office staff obtain vitals. And they bundled you up into a car and you were brought here. Before they got you in the car you received a shot of Rocephin. The chest x-ray that had been normal on June 02 was now with bilateral pneumonia. Blood cultures are growing out strep pneumonia in both sets. With the second evaluation your white cell count was normal. Today, on the day of discharge it has gone up to 16,000. But you have no fever, your pulse rate has been normal to low. Blood pressure stable. Ambulating in the hallways. Eating 75 to 100% of your food. I feel that you are stable enough to go home. You and I discussed your elevated white cell count and we both agree that this may be a rebound phenomena from suppression from the strep pneumonia. The only other issue that identified during your stay was that of a normocytic anemia. As you know normal hemoglobin is 14.0. You are 9.5. It is not enough to transfuse. But you should be seen in follow-up by a primary care provider to start the anemia workup. Instructions for discharge: 1. You have asked me to send follow-up paperwork to Dr. Summers in [place]. You did not want me to send paperwork to the provider you see here in [place]. In any case you need to see a primary care provider in the next week. A follow-up chest x-ray in a month should be done to make sure that the pneumonia has completely resolved. 2. Please take Augmentin 500 mg / 125 mg twice a day for 10 doses. Do not take it on empty stomach. I would recommend a probiotic [id number] to take with it. 3. If you have a change in mental status, I change in vital signs with a low blood pressure or fever, please feel free to come back to the emergency room. Print Language: Indonesian Patient Instructions: Pneumonia Dc"
[2024-06-11 21:07] LABS: MYCOPLASMA PNEUMONIAE IGG ABS <100 U/mL (0-99); MYCOPLASMA PNEUMONIAE IGM ABS <770 U/mL (0-769)
== END 2024-06-07 13:35 | disposition home or self-care (01) | DRG 193 ==
LOC: ED 11:39 → MS3 13:13
PROVIDERS: ADMIT Specialist; ATTEND Specialist
DX: K21.9 Gastro-esophageal reflux disease without esophagitis; Z79.899 Other long term (current) drug therapy; R39.15 Urgency of urination; R63.0 Anorexia; E87.1 Hypo-osmolality and hyponatremia; J12.2 Parainfluenza virus pneumonia; N39.498 Other specified urinary incontinence; J96.01 Acute respiratory failure with hypoxia; N40.1 Benign prostatic hyperplasia with lower urinary tract symptoms; R35.0 Frequency of micturition; R27.0 Ataxia, unspecified; D64.9 Anemia, unspecified; J18.9 Pneumonia, unspecified organism; Z87.19 Personal history of other diseases of the digestive system; D72.819 Decreased white blood cell count, unspecified; J45.909 Unspecified asthma, uncomplicated; Z68.21 Body mass index [BMI] 21.0-21.9, adult; J13 Pneumonia due to Streptococcus pneumoniae; N13.8 Other obstructive and reflux uropathy